=== PATIENT | female | born 1990 | race Caucasian/White ===

== ENCOUNTER 2019-08-21 12:22 | Emergency (ER) | payer BC, SELFPAY ==
[2019-08-21 12:31] VITALS: BP 122/88; PULSE 94; RESP 20; TEMP 36.4; O2SAT 100
--- NOTE | 2019-08-21 12:39 | ED.URI ---
HPI - URI/Sore Throat General Chief Complaint: Upper Respiratory Infection Stated Complaint: SORE THROAT Time Seen by Provider: 08/21/19 12:50 Source: patient and RN notes reviewed Mode of arrival: ambulatory Limitations: no limitations History of Present Illness HPI Narrative: 28-year-old female presents with concern for sore throat, sinus congestion, body aches, headache, abdominal cramping with diarrhea. Reports she has had exposures to strep and influenza. MD elicited complaint: sore throat Related Data Home Medications Medication Instructions Recorded Confirmed hydrocortisone 2.5 % topical cream 1 applic RECTAL DAILY PRN 05/18/19 08/21/19 with perineal applicator famotidine 20 mg tablet 20 mg PO BID PRN tablet 07/14/19 08/21/19 hyoscyamine sulfate 0.125 mg tablet 0.125 mg PO QID PRN 07/14/19 08/21/19 meloxicam 15 mg tablet 15 mg PO DAILY PRN 07/14/19 08/21/19 Allergies Allergy/AdvReac Type Severity Reaction Status Date / Time promethazine Allergy Unknown Other Verified 08/21/19 12:43 metoclopramide AdvReac Mild NERVOUSNESS; Verified 08/21/19 12:43 PT REFUSES FEXOFENADINE HCL Allergy Mild Other Uncoded 08/21/19 12:43 Review of Systems Review of Systems: Narrative: CONSTITUTIONAL: Report malaise, chills, sweats. Denies fever. EYES: Denies visual changes, redness, or discharge. ENT: Reports rhinorrhea, congestion, otalgia and sore throat. Denies sinus pain CARDIOVASCULAR: Denies chest pain, palpitations, or edema. RESPIRATORY: Reports cough. Denies dyspnea. GASTROINTESTINAL: Denies abdominal pain, nausea, vomiting. Reports diarrhea SKIN: Denies rash or itching. MUSCULOSKELETAL: Reports myalgia. NEUROLOGIC: Reports headache. All systems reviewed & are unremarkable except as noted in HPI and below PMFSH Past Medical History Medical History (Updated 08/21/19 @ 13:14 by Judit Estrada NP) GERD (gastroesophageal reflux disease) Pharyngitis Postnasal discharge Family History Family History (Updated 12/22/18 @ 11:54 by DOCTOR UNKNOWN) Grandparent Hypertension Mother Patient's mother is in good health Carcinoma of colon Social History Social History Smoking status: Never smoker Alcohol intake: current Comments At time of signature, agree with nursing past medical, surgical, social and family history. There is no relevant family history pertinent to the presenting complaint Exam Narrative: Exam Narrative: GENERAL: Well-appearing, well-nourished, and in no acute distress. HEAD: Normocephalic EYES: PERRLA, conjunctivae clear ENT: Nares clear, turbinates edematous and erythematous, clear discharge. Mucous membranes moist. TM pearly vera with dull light reflex bilaterally; no tragal tenderness. Oropharynx erythematous without lesions. Tonsils not enlarged and without exudate, no drooling, no hoarseness, no trismus, uvula midline. NECK: Supple. No lymphadenopathy CHEST: Clear to auscultation, breath sounds equal. No wheezing, rhonchi, rales, or stridor. No respiratory distress, speaks in full sentences. HEART: Regular rate and rhythm. No murmur heard. Normal peripheral pulses. SKIN: Warm, dry, no rash. NEURO: Alert and oriented x3. PSYCH: Normal mood and affect Course Course Emergency Course: Patient is aware of diagnosis, understands and agrees to treatment plan. Anticipatory guidance given. Patient agrees to follow-up as directed and is aware of reasons to seek care at the emergency department. Portions of this record may have been created with voice recognition software Vital Signs Vital signs: Vital Signs Temperature 97.6 F 08/21/19 12:31 Pulse Rate 94 08/21/19 12:31 Respiratory Rate 08/21/19 12:31 Blood Pressure 122/88 08/21/19 12:31 Pulse Oximetry 100 08/21/19 12:31 Temperature 97.6 F 08/21/19 12:31 Pulse Rate 94 08/21/19 12:31 Respiratory Rate 08/21/19 12:31 Blood Pressure 122/88 08/21/19 12:31 Pulse Oximetry 100 08/21/19 12:31 R
== END 2019-08-21 13:16 | disposition home or self-care (01) ==
PROVIDERS: Emergency Provider Nurse Practitioner; PCP Family Medicine
DX: J02.9 Acute pharyngitis, unspecified (principal); J32.9 Chronic sinusitis, unspecified; R51 Headache; R10.9 Unspecified abdominal pain
CPT/HCPCS: 87081; 87804; 87880; 99213; G0463

== ENCOUNTER 2020-02-29 23:45 | Emergency (ER) | payer BC, SELFPAY ==
[2020-03-01 00:09] VITALS: BP 121/87; PULSE 94; RESP 20; TEMP 36.4; O2SAT 100
[2020-03-01 00:58] LABS: Basophils Percent Auto 0.2 % (0.2-1.2); Eosinophils Absolute Auto 0.2 K/mm3 (0-0.3); Eosinophils Percent Auto 1.8 % (0-4.4); Hematocrit 44.4 % (37.0-47.0); Hemoglobin 14.8 g/dL (12.0-15.0); Immature Granulocyte Absolute 0.04 K/mm3 (0.00-0.031); Immature Granulocyte Percent A 0.4 % (0-0.5); Lymphocytes Percent Auto 22.2 % (18.3-44.2); Mean Corpuscular HGB Conc 33.3 g/dl (32-36); Mean Corpuscular Hemoglobin 28.4 pg (26-34); Mean Corpuscular Volume 85.2 fl (80-100); Mean Platelet Volume 9.2 fl (7.4-10.4); Monocytes Absolute Auto 0.5 K/mm3 (0.1-0.6); Neutrophils Absolute Auto 7.6 K/mm3 (1.3-6.7); Neutrophils Percent Auto 70.4 % (45.5-73.1); Platelet Count Result 408 k/mm3 (150-375); Red Blood Count 5.21 M/mm3 (4.2-5.4); White Blood Count 10.8 K/mm3 (4.5-10.0)
[2020-03-01 01:07] LABS: Add Urine Microscopic? YES; Appearance Urine Clear (Clear); Bilirubin Urine Negative (Negative); Blood Urine 3+ (Negative); Color Urine Yellow (Yellow); Glucose Urine UA Negative (Negative); Ketones Urine Negative (Negative); Leukocyte Esterase Ur Negative LEU/UL (Negative); Mucus Urine Moderate /lpf; Nitrate Urine Negative (Negative); Protein Urine 1+ mg/dL (Negative); RBC Urine 0-2 /hpf (0-2); Squamous Epithelial Cell Urine Many /hpf (Few); Urobilinogen Urine Negative mg/dL (<2.0); WBC Urine 0-3 /hpf
[2020-03-01 01:10] LABS: Specific Grav Ur 1.033 (1.001-1.035)
[2020-03-01 01:22] LABS: Alanine Aminotransferase 6 U/L (4-35); Albumin Level 4.3 g/dL (3.5-5.1); Alkaline Phosphatase 60 U/L (38-126); Anion Gap 6 mmol/L (8-16); Aspartate Amino Transferase 17 U/L (14-36); Bilirubin,Total 0.4 mg/dL (0.2-1.3); Blood Urea Nitrogen 10 mg/dL (7-17); Calcium 9.1 mg/dL (8.4-10.2); Carbon Dioxide 27 mmol/L (22-30); Chloride 104 mmol/L (98-107); Estimated CRCL calculation 133 ml/min; Estimated Glomerular Filt Rate > 60; Glucose 107 mg/dL (65-105); Lipase 78 U/L (23-300); Potassium 3.9 mmol/L (3.4-5.0); Sodium 137 mmol/L (137-145)
--- NOTE | 2020-03-01 01:31 | ED.ABDPAIN ---
HPI - Abdominal Pain General Chief Complaint: Abdominal Pain Stated Complaint: ABD PAIN, N/V/D Time Seen by Provider: 03/01/20 01:30 History of Present Illness HPI narrative: 29 yo female with IBS, PCOS presents with abdominal pain. She has had generalized abdominal pain throughout the day today. Worst in the epigastrium. No radiation. Feels like cramping. Associated with vomiting and diarrhea. Feels similar to IBS symptoms, but it has not been this severe in a awhile. tried pepcid without relief. No fever, sick contacts. Related Data Home Medications Medication Instructions Recorded Confirmed hydrocortisone 2.5 % topical cream 1 applic RECTAL DAILY PRN 05/18/19 03/09/20 with perineal applicator famotidine 20 mg tablet 20 mg PO BID PRN tablet 07/14/19 03/09/20 hyoscyamine sulfate 0.125 mg tablet 0.125 mg PO QID PRN 07/14/19 03/09/20 meloxicam 15 mg tablet 15 mg PO DAILY PRN 07/14/19 03/09/20 rifaximin 550 mg tablet 550 mg PO TID tablet 03/09/20 03/09/20 Allergies Allergy/AdvReac Type Severity Reaction Status Date / Time promethazine Allergy Unknown Other Verified 08/21/19 12:43 metoclopramide AdvReac Mild NERVOUSNESS; Verified 08/21/19 12:43 PT REFUSES FEXOFENADINE HCL Allergy Mild Other Uncoded 08/21/19 12:43 Review of Systems Review of Systems: All systems reviewed & are unremarkable except as noted in HPI and below Constitutional: Constitutional: Denies fever(s) Cardiovascular: Cardiovascular: Denies chest pain Respiratory: Respiratory: Denies dyspnea Gastrointestinal: Gastrointestinal: Reports abdominal pain, Reports diarrhea, Reports nausea and Reports vomiting Genitourinary: Genitourinary: Denies hematuria and Denies dysuria Musculoskeletal: Musculoskeletal: Reports back pain Neurologic: Denies confusion, Denies dizziness and Denies weakness PMF Past Medical History Medical History Acne vulgaris GERD (gastroesophageal reflux disease) Hirsutism Irritable bowel syndrome with diarrhea PCOS (polycystic ovarian syndrome) Pharyngitis Postnasal discharge Family History Family History Grandparent Hypertension Mother Patient's mother is in good health Carcinoma of colon Social History Social History Smoking status: Never smoker Alcohol intake: current Gender identity (if verbalized by the patient): Female Exam Const: General: no acute distress and alert Nutritional Appearance: obese Orientation/consciousness: patient oriented x3 HENMT: Head: normal to inspection Resp: Effort & Inspection: normal respiratory effort Auscultation: clear to auscultation bilaterally Cardio: Rate: regular rate Rhythm: regular rhythm GI: Inspection: non-distended GI Palp: Yes Soft to palpation, Yes Tenderness to palpation present (GI), No Guarding due to palpation present (GI) and No Rebound tenderness present Auscultation: normal bowel sounds Skin: General skin exam: normal color Neuro: General: patient oriented x3, moves all extremities and no focal motor deficits Speech: normal speech Gait exam (Neuro): Normal gait present Extrem: General: normal to inspection Course Vital Signs Vital signs: Vital Signs Temperature 36.4 C 03/01/20 00:09 Pulse Rate 94 03/01/20 00:09 Respiratory Rate 20 03/01/20 00:09 Blood Pressure 121/87 03/01/20 00:09 Pulse Oximetry 100 03/01/20 00:09 Temperature 36.4 C 03/01/20 00:09 Pulse Rate 77 03/01/20 03:57 Respiratory Rate 16 03/01/20 03:57 Blood Pressure 115/84 03/01/20 03:57 Pulse Oximetry 100 03/01/20 03:57 MDM - Abdominal Pain MDM Narrative Medical decision making narrative: Minimally elevated WBCs. Labs otherwise unremarkable. Symptoms most likely IBS. Cannot ruleout GERD or gastroenteritis. Feeling better after treatment. Differential
[2020-03-01 01:52] VITALS: BP 119/84; PULSE 92; RESP 18; O2SAT 100
[2020-03-01] MEDS: PANTOPRAZOLE SODIUM IV 40 MG VIAL IV PUSH (02:46)
[2020-03-01 02:49] VITALS: BP 113/85; PULSE 84; RESP 18; O2SAT 100
[2020-03-01 03:57] VITALS: BP 115/84; PULSE 77; RESP 16; O2SAT 100
== END 2020-03-01 04:04 | disposition home or self-care (01) ==
PROVIDERS: Emergency Provider Emergency Medicine; PCP Family Medicine
DX: R10.13 Epigastric pain (principal); E28.2 Polycystic ovarian syndrome; K21.9 Gastro-esophageal reflux disease without esophagitis; K58.0 Irritable bowel syndrome with diarrhea
CPT/HCPCS: 36415; 80053; 81001; 81025; 83690; 85025; 96374; 99284; A9270; C9113

== ENCOUNTER 2020-03-21 11:34 | Emergency (ER) | payer BC, SELFPAY ==
[2020-03-21] VITALS (38 sets, daily range): BP systolic 106–145; BP diastolic 71–116; PULSE 104; RESP 21; TEMP 36.8; O2SAT 97–100
--- NOTE | ~2020-03-21 | XR_ITS ---
XR chest 1V portable DATE: 03/21/2020 13:15 INDICATION: Shortness of breath. Covid-positive. TECHNIQUE: Portable AP chest on 03/21/2020 at 1313 hours COMPARISON: None FINDINGS: There is patchy infiltrate and/or atelectasis in the left lower lung zone, suggestion of mi nimal patchy infiltrate in the right mid to lower lung. No pleural effusion or pulmonary vascular congestion or pneumothorax. Normal heart size. No hilar or mediastinal enlargement. IMPRESSION: Left lower lung infiltrate and/atelectasis; minimal infiltrate suggested on the right Reviewed, dictated and finalized at location A. IMPRESSION: Left lower lung infiltrate and/atelectasis; minimal infiltrate lay[place] faye on the right
--- NOTE | 2020-03-21 12:13 | ECG_ITS ---
Measurements Intervals [place] Rate: 72 P: 48 DC: 167 QRS: 43 QRSD: 88 T: 36 QT: 348 QTc: 383 Interpretive Statements SINUS RHYTHM BASELINE ARTIFACT- V4 NORMAL ECG Electronically Signed On 03-21-2020 13:16:21 CDT by Gautam Garrido D.O.
--- NOTE | 2020-03-21 12:34 | ED.GENADULT ---
HPI - General Adult General Chief complaint: Shortness of Breath/Dyspnea Stated complaint: sob/covid Time Seen by Provider: 03/21/20 12:09 Source: patient History of Present Illness HPI narrative: Patient is a 29 y/o female complaining of mild to moderate SOB starting 2 days ago. She states that she was diagnosed with COVID 8 days ago on 03/13/20. She has been having cough, bodyache, headache, malaise, etc for over a week. However, her SOB just started 2 days ago. It's exacerbated by movement and exertion. Related Data Home Medications Medication Instructions Recorded Confirmed hyoscyamine sulfate 0.125 mg tablet 0.125 mg PO QID PRN 07/14/19 03/09/20 Allergies Allergy/AdvReac Type Severity Reaction Status Date / Time promethazine Allergy Unknown Other Verified 08/21/19 12:43 metoclopramide AdvReac Mild NERVOUSNESS; Verified 08/21/19 12:43 PT REFUSES Review of Systems Constitutional: Constitutional: Reports chills, Reports fatigue, Denies fever(s), Reports headache(s) and Reports weakness Eyes: Eyes: Denies blurry vision ENT: Reports headache(s) and Denies neck pain Cardiovascular: Cardiovascular: Denies chest pain and Reports dyspnea Respiratory: Respiratory: Reports cough and Reports dyspnea Gastrointestinal: Gastrointestinal: Denies abdominal pain, Denies diarrhea, Denies nausea and Denies vomiting Genitourinary: Genitourinary: Denies hematuria and Denies dysuria Musculoskeletal: Musculoskeletal: Denies back pain and Denies neck pain Neurologic: Reports headache(s) and Reports weakness PMFSH Past Medical History Medical History Acne vulgaris GERD (gastroesophageal reflux disease) Hirsutism Irritable bowel syndrome with diarrhea PCOS (polycystic ovarian syndrome) Pharyngitis Postnasal discharge Family History Family History Grandparent Hypertension Mother Patient's mother is in good health Carcinoma of colon Social History Social History Smoking status: Never smoker Alcohol intake: current Gender identity (if verbalized by the patient): Female Exam Const: General: no acute distress and well developed Orientation/consciousness: oriented to person, oriented to place, oriented to time and patient oriented x3 HENMT: Head: normocephalic Ears: external ears normal General nose exam: Normal external nose present Eyes: General: appearance normal, both eyes and all related structures Conjunctivae: conjunctivae normal Neck: Neck: normal visual inspection and full ROM Chest: Chest palpation & inspection: normal inspection of the chest and no tenderness Resp: Effort & Inspection: normal respiratory effort and able to speak in complete sentences Cardio: Rate: tachycardic Rhythm: regular rhythm GI: GI Palp: No abdominal tenderness and Yes Soft to palpation Skin: General skin exam: normal color and turgor normal Neuro: General: oriented to person, oriented to place, oriented to time and patient oriented x3 Cognition (Neuro): normal cognition Extrem: General: normal to inspection, full ROM and no pedal edema Psych: Appearance: grossly normal Mental Status: mental status grossly normal Affect: normal affect Course Vital Signs Vital signs: Vital Signs Temperature 36.8 C 03/21/20 11:38 Pulse Rate 104 H 03/21/20 11:38 Respiratory Rate 21 H 03/21/20 11:38 Blood Pressure 123/87 03/21/20 11:38 Pulse Oximetry 100 03/21/20 11:38 Temperature 36.8 C 03/21/20 11:38 Pulse Rate 104 H 03/21/20 11:38 Respiratory Rate 21 H 03/21/20 11:38 Blood Pressure 110/85 03/21/20 16:15 Pulse Oximetry 100 03/21/20 17:15 Medical Decision Making Vital Signs Vital Signs: Vital Signs Temperature 36.8 C 03/21/20 11:38 Pulse Rate 104 H 03/21/20 11:38 Respiratory Rate 21 H 03/21/20 11:38 Blood Pressure
[2020-03-21 12:51] LABS: Basophils Percent Auto 0.4 % (0.2-1.2); Eosinophils Absolute Auto 0.1 K/mm3 (0-0.3); Eosinophils Percent Auto 2.3 % (0-4.4); Hemoglobin 15.4 g/dL (12.0-15.0); Immature Granulocyte Absolute 0.01 K/mm3 (0.00-0.031); Immature Granulocyte Percent A 0.2 % (0-0.5); Lymphocytes Absolute Auto 1.95 K/mm3 (0.9-3.2); Lymphocytes Percent Auto 34.5 % (18.3-44.2); Mean Corpuscular HGB Conc 33.5 g/dl (32-36); Mean Corpuscular Hemoglobin 28.4 pg (26-34); Mean Corpuscular Volume 84.7 fl (80-100); Mean Platelet Volume 9.1 fl (7.4-10.4); Monocytes Absolute Auto 0.3 K/mm3 (0.1-0.6); Monocytes Percent Auto 5.5 % (2.6-8.5); Neutrophils Absolute Auto 3.2 K/mm3 (1.3-6.7); Neutrophils Percent Auto 57.1 % (45.5-73.1); Platelet Count Result 305 k/mm3 (150-375); Red Blood Count 5.43 M/mm3 (4.2-5.4); Red Cell Distribution Width 13.2 % (11.5-14.5); White Blood Count 5.7 K/mm3 (4.5-10.0)
[2020-03-21 13:02] LABS: Alanine Aminotransferase 7 U/L (4-35); Albumin Level 4.5 g/dL (3.5-5.1); Alkaline Phosphatase 51 U/L (38-126); Anion Gap 11 mmol/L (8-16); Aspartate Amino Transferase 21 U/L (14-36); Bilirubin,Total 0.3 mg/dL (0.2-1.3); Blood Urea Nitrogen 10 mg/dL (7-17); Calcium 9.2 mg/dL (8.4-10.2); Carbon Dioxide 27 mmol/L (22-30); Chloride 103 mmol/L (98-107); Estimated CRCL calculation 131 ml/min; Estimated Glomerular Filt Rate > 60; Glucose 93 mg/dL (65-105); Potassium 4.1 mmol/L (3.4-5.0); Sodium 141 mmol/L (137-145)
--- NOTE | 2020-03-21 13:07 | PC.NURSE ---
X-ray at bedside.
[2020-03-21 13:15] LABS: NT Pro B Type Natriuretic Pept 14 PG/ML (5-100); Troponin I < 0.012 ng/mL (0.000-0.034)
[2020-03-21 13:30] LABS: Add Urine Microscopic? NO; Appearance Urine Clear (Clear); Bilirubin Urine Negative (Negative); Blood Urine Negative (Negative); Color Urine Yellow (Yellow); Glucose Urine UA Negative (Negative); Ketones Urine Negative (Negative); Leukocyte Esterase Ur Negative LEU/UL (Negative); Mucus Urine Rare /lpf; Nitrate Urine Negative (Negative); Protein Urine Negative (Negative); RBC Urine 0-2 /hpf (0-2); Specific Grav Ur 1.016 (1.001-1.035); Squamous Epithelial Cell Urine Few /hpf (Few); Urobilinogen Urine Negative mg/dL (<2.0); WBC Urine 0-3 /hpf
[2020-03-21 16:04] LABS: Troponin I < 0.012 ng/mL (0.000-0.034)
== END 2020-03-21 17:19 | disposition home or self-care (01) ==
PROVIDERS: Emergency Provider Emergency Medicine; PCP Family Medicine
DX: U07.1 COVID-19 (principal); J12.89 Other viral pneumonia; K21.9 Gastro-esophageal reflux disease without esophagitis; K58.0 Irritable bowel syndrome with diarrhea; E28.2 Polycystic ovarian syndrome; L68.0 Hirsutism
CPT/HCPCS: 36415; 71045; 80053; 81003; 81025; 83880; 84484; 85025; 85380; 93005; 99284

== ENCOUNTER 2020-04-15 15:42 | Outpatient (CLI) | payer BC, SELFPAY ==
--- NOTE | ~2020-04-15 | CT_ITS ---
EXAMINATION: CT BRAIN W/O DATE: 04/15/2020 16:16 INDICATION: Disorientation TECHNIQUE: Computed tomography (CT) of the head was performed without intravenous contrast. The dose- length product was 529.67 mGy-cm. The mA was adjusted according to patient size. Iterative reconstruc tion technique was employed. COMPARISON: No prior studies for comparison. FINDINGS: Normal brain parenchymal volume for age. Normal vera-white differentiation. No acute intrac ranial hemorrhage, infarction, mass or mass effect. No ventriculomegaly or midline shift. Midline sagittal images demonstrate a normal corpus callosum, c raniovertebral junction and sella turcica. Basilar cisterns are patent. Paranasal sinuses and mastoids are pneumatized. No depressed skull fractures. IMPRESSION: 1. No acute intracranial abnormality. Reviewed, dictated and finalized at location A.
== END 2020-04-15 15:43 | disposition home or self-care (01) ==
PROVIDERS: PCP Family Medicine; Visit Provider Family Medicine
DX: R41.0 Disorientation, unspecified (principal)
CPT/HCPCS: 70450

== ENCOUNTER → 2020-05-25 10:54 | Outpatient (CLI) | payer BC, SELFPAY ==
--- NOTE | ~2020-05-25 | XR_ITS ---
XR chest 2V DATE: 05/25/2020 11:35 INDICATION: Shortness of breath. Past Covid-positive diagnosis. TECHNIQUE: PA and lateral views COMPARISON: 03/21/2020 portable AP chest FINDINGS: Normal heart size. No hilar or mediastinal enlargement. No pulmonary infiltrate or consolid ation, pleural effusion or pulmonary vascular congestion or pneumothorax. Mild levoscoliosis of the upper thoracic spine. 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
== END ==
PROVIDERS: PCP Family Medicine; Visit Provider Internal Medicine Infectious Disease
DX: U07.1 COVID-19 (principal)
CPT/HCPCS: 71046

== ENCOUNTER 2021-11-17 14:02 | Observation (INO) | payer BC, SELFPAY ==
[2021-11-17] VITALS (14 sets, daily range): BP systolic 114–137; BP diastolic 64–81; PULSE 61–78; BMI 36.8
--- NOTE | 2021-11-17 15:31 | OBADM ---
This patient, Kailee Scott, admitted to the OB room [facility] for observation. Patient/family oriented to hospital policies and general routines including ID bracelet, bed and alarms, visiting hours, pain management, procedures, bathroom and other care routines, personal items, smoking policy, room service/diet, and visiting hours. Patient/Family are encouraged to report perceived risks to care and to ask questions if they do not understand what they are told or what they should do.
[2021-11-17] MEDS: ONDANSETRON INJ 4 MG/2 ML VIAL IV PUSH (15:51)
[2021-11-17] MEDS: DEXTROSE 5%/LACTATED RINGERS 1,000 ML 999 ML IV CONT (15:51)
[2021-11-17 16:02] LABS: Hematocrit 44.8 % (37.0-47.0); Mean Corpuscular HGB Conc 33.5 g/dl (32-36); Mean Corpuscular Hemoglobin 28.5 pg (26-34); Mean Platelet Volume 9.2 fl (7.4-10.4); Platelet Count Result 374 k/mm3 (150-375); Red Blood Count 5.27 M/mm3 (4.2-5.4); Red Cell Distribution Width 13.2 % (11.5-14.5)
[2021-11-17 16:08] LABS: Appearance Urine Clear (Clear); Bilirubin Urine 2+ (Negative); Blood Urine Negative (Negative); Color Urine Yellow (Yellow); Glucose Urine UA Negative (Negative); Ketones Urine 4+ mg/dL (Negative); Leukocyte Esterase Ur Negative LEU/UL (NEGATIVE); Nitrate Urine Negative (Negative); Protein Urine 1+ mg/dL (Negative); Specific Grav Ur >= 1.030 (1.001-1.035)
[2021-11-17 16:09] LABS: Add Urine Microscopic? NO
[2021-11-17 16:13] LABS: Alanine Aminotransferase 12 U/L (6-35); Albumin Level 4.4 g/dL (3.5-5.1); Alkaline Phosphatase 65 U/L (38-126); Anion Gap 7 mmol/L (8-16); Aspartate Amino Transferase 23 U/L (14-36); Bilirubin,Total 0.5 mg/dL (0.2-1.3); Blood Urea Nitrogen 8 mg/dL (7-17); Carbon Dioxide 25 mmol/L (22-30); Chloride 103 mmol/L (98-107); Estimated CRCL calculation 151 ml/min; Estimated Glomerular Filt Rate > 60; Glucose 81 mg/dL (65-110); Potassium 3.7 mmol/L (3.4-5.0); Sodium 135 mmol/L (137-145)
[2021-11-17] MEDS: THIAMINE HCL INJ 100 MG, FOLIC ACID INJ 1 MG, MULTIVITAMINS-12 INJ VIAL 1 5 ML, MULTIVI... 999 MG IV CONT (16:17)
--- NOTE | 2021-11-17 17:57 | PC.NURSE ---
Pt feeling improve. Still nauseated but feels more alive. Food offered to pt and she declined stating she would like to go home while she feels well and have a break from vomiting. Dr. Park on unit and made aware. Dr. Park reviewed pt labs. Dr. Park gave discharge orders.
--- NOTE | 2021-11-21 11:41 | P.PNOB_ITS ---
OB - Triage/Final Diagnosis Visit Information Comments/Additional reasons for admission: I have assessed the risk for this patient, Kailee Scott, and determined that she would benefit from observation care. Evaluation Laboratory results: Laboratory Tests 11/17/21 11/17/21 11/17/21 15:54 15:54 15:55 WBC 10.0 RBC 5.27 Hgb 15.0 Hct 44.8 MCV 85.0 MCH 28.5 MCHC 33.5 RDW 13.2 Plt Count 374 MPV 9.2 Sodium 135 L Potassium 3.7 Chloride 103 Carbon Dioxide 25 Anion Gap 7 L BUN 8 Creatinine 0.50 L Estim Creat Clear Calc 151 Estimated GFR > 60 Glucose 81 Calcium 9.0 Total Bilirubin 0.5 AST 23 ALT 12 Alkaline Phosphatase 65 Total Protein 8.0 Albumin 4.4 Urine Color Yellow Urine Appearance Clear Urine pH 6.0 Ur Specific [place] >= 1.030 Urine Protein 1+ H Urine Glucose (UA) Negative Urine Ketones 4+ H Ur Blood (Man) Negative Urine Nitrate Negative Urine Bilirubin 2+ H Urine Urobilinogen 4.0 H Ur Leukocyte Esterase Negative Final Diagnosis (1) Hyperemesis affecting , antepartum: Code(s): O21.0 - Mild hyperemesis gravidarum Status: Acute
== END 2021-11-17 18:21 | disposition home or self-care (01) ==
PROVIDERS: Admitting Provider Obstetrics & Gynecology; PCP Family Medicine; Visit Provider Obstetrics & Gynecology
DX: O21.0 Mild hyperemesis gravidarum (principal); Z3A.08 8 weeks gestation of pregnancy
CPT/HCPCS: 36415; 80053; 81003; 85027; 96374; 96375; G0378; G0379; J2405; J3411; J3475; J7121